=== PATIENT | male | born 1945 | race Caucasian/White ===

== ENCOUNTER 2017-01-30 14:59 | Outpatient (CLI) | payer MEDICARE | END 2017-01-30 15:00 | disposition home or self-care (01) | DX: I25.10 Atherosclerotic heart disease of native coronary artery without angina pectoris (principal); I10 Essential (primary) hypertension; E03.9 Hypothyroidism, unspecified; I48.91 Unspecified atrial fibrillation ==

== ENCOUNTER 2017-05-09 10:20 | Outpatient (CLI) | payer MEDICARE | END 2017-05-09 10:21 | disposition home or self-care (01) | LOC: SC 10:20 | PROVIDERS: ATTEND Specialist | DX: G47.33 Obstructive sleep apnea (adult) (pediatric) (principal) | CPT/HCPCS: 99205; G0463; 99212 ==

== ENCOUNTER 2017-06-26 09:45 | Outpatient (CLI) | payer MEDICARE ==
[2017-06-26 18:41] LABS: ALBUMIN/GLOBULIN RATIO 0.9 (1.0-2.2); BILIRUBIN,TOTAL 0.2 mg/dL (0.2-1.0); CALCIUM 8.8 mg/dL (8.5-10.3); CREATININE 1.4 mg/dL (0.6-1.2); POTASSIUM 4.7 mmol/L (3.5-5.0); TOTAL PROTEIN 7.2 g/dL (6.7-8.2)
== END 2017-06-26 09:46 | disposition home or self-care (01) ==
LOC: LAB.R 09:45 → LAB.S 09:46
PROVIDERS: ATTEND Surgery Vascular Surgery
DX: I10 Essential (primary) hypertension (principal)
CPT/HCPCS: 36415; 80053

== ENCOUNTER 2017-07-02 19:22 | Outpatient (CLI) | payer MEDICARE | END 2017-07-02 19:23 | disposition home or self-care (01) | LOC: SC 19:22 | PROVIDERS: ATTEND Internal Medicine Pulmonary Disease | DX: G47.33 Obstructive sleep apnea (adult) (pediatric) (principal); G47.61 Periodic limb movement disorder | CPT/HCPCS: 95811 ==

== ENCOUNTER 2017-07-11 14:06 | Outpatient (CLI) | payer MEDICARE | END 2017-07-11 14:07 | disposition home or self-care (01) | LOC: SC 14:06 | PROVIDERS: ATTEND Specialist | DX: G47.33 Obstructive sleep apnea (adult) (pediatric) (principal) | CPT/HCPCS: 99214; G0463; 99212 ==

== ENCOUNTER 2017-09-11 11:03 | Outpatient (CLI) | payer MEDICARE | END 2017-09-11 11:04 | disposition home or self-care (01) | LOC: SC 11:03 | PROVIDERS: ATTEND Nurse Practitioner Family | DX: G47.33 Obstructive sleep apnea (adult) (pediatric) (principal) | CPT/HCPCS: 99213; G0463; 99212 ==

== ENCOUNTER 2019-02-05 11:05 | Outpatient (CLI) | payer MEDICARE | END 2019-02-05 11:06 | disposition home or self-care (01) | LOC: SC 11:05 | PROVIDERS: ATTEND Nurse Practitioner Family | DX: G47.33 Obstructive sleep apnea (adult) (pediatric) (principal) | CPT/HCPCS: 99214; G0463; 99212 ==

== ENCOUNTER 2019-08-05 13:18 | Outpatient (CLI) | payer MEDICARE | END 2019-08-05 13:19 | disposition home or self-care (01) | LOC: RT 13:18 | PROVIDERS: ATTEND Surgery Vascular Surgery | DX: I48.0 Paroxysmal atrial fibrillation (principal); E78.5 Hyperlipidemia, unspecified; Z79.899 Other long term (current) drug therapy | CPT/HCPCS: 36415; 80053; 80061; 83721; 84443; 85027; 94010; 94729 ==

== ENCOUNTER 2019-08-05 14:21 | Outpatient (CLI) | payer MEDICARE ==
[2019-08-05 14:42] LABS: HGB - HEMOGLOBIN 15.3 g/dL (14.0-18.0); MEAN CORPUSCULAR HEMOGLOBIN 33.1 pg (27.0-31.0); MEAN CORPUSCULAR HGB CONC 32.3 g/dL (32.0-36.0); MEAN CORPUSCULAR VOLUME 102.6 fL (80.0-94.0); MEAN PLATELET VOLUME 10.3 fL (7.4-11.4); RED BLOOD COUNT 4.62 10^6/uL (4.70-6.10); RED CELL DISTRIBUTION WIDTH 15.9 % (12.0-15.0)
[2019-08-05 15:02] LABS: ALBUMIN 3.7 g/dL (3.2-5.5); ALKALINE PHOSPHATASE 101 IU/L (42-121); ALT ALANINE AMINOTRANSFERASE 14 IU/L (10-60); AST ASPARTATE AMINOTRANSFERASE 17 IU/L (10-42); BILIRUBIN,TOTAL 0.6 mg/dL (0.2-1.0); BUN - BLOOD UREA NITROGEN 26 mg/dL (6-20); CALCIUM 9.3 mg/dL (8.5-10.3); CARBON DIOXIDE - CO2 22 mmol/L (21-32); CHLORIDE 108 mmol/L (101-111); CHOL/HDL RATIO 4.3 (<5.0); CHOLESTEROL 173 mg/dL; CREATININE 1.5 mg/dL (0.6-1.2); GFR - MDRD 46 (>89); GLUCOSE 90 mg/dL (70-100); HDL CHOLESTEROL 40 mg/dL; LDL CHOLESTEROL,CALCULATED 117 mg/dL; LDL/HDL RATIO 2.9 (<3.6); SODIUM 142 mmol/L (135-145); TOTAL PROTEIN 7.3 g/dL (6.7-8.2); VLDL CHOLESTEROL 16 mg/dL
== END 2019-08-05 14:22 | disposition home or self-care (01) ==
LOC: LAB 14:21
PROVIDERS: ATTEND Surgery Vascular Surgery
DX: I48.0 Paroxysmal atrial fibrillation (principal); E78.5 Hyperlipidemia, unspecified; Z79.899 Other long term (current) drug therapy
CPT/HCPCS: 36415; 80053; 80061; 83721; 84443; 85027

== ENCOUNTER 2019-09-05 10:13 | Outpatient (CLI) | payer MEDICARE | END 2019-09-05 10:14 | disposition home or self-care (01) | LOC: DI 10:13 | PROVIDERS: ATTEND Surgery Vascular Surgery | DX: I48.0 Paroxysmal atrial fibrillation (principal); I51.7 Cardiomegaly | CPT/HCPCS: 93306 ==

== ENCOUNTER 2019-10-04 08:14 | Outpatient (CLI) | payer MEDICARE ==
--- NOTE | 2019-10-07 10:08 | DEXA Report ---
Reason: LUMBAR AND THORACIC COMPRESSION FRACTURES Procedure Date: 10/04/2019 Accession Number: [id number] / [id number] Procedure: DEX - Dexa Spine and/or Hip CPT Code: Final Report FULL RESULT: EXAM: Dexa Spine and/or Hip DATE: 10/04/2019 8:45 AM CLINICAL HISTORY: LUMBAR AND THORACIC COMPRESSION FRACTURES TECHNIQUE: Dual energy x-ray absorptiometry (DXA) was performed on a DEUS System. Regions measured are the AP Spine, femoral neck, and if needed forearm. COMPARISON: None. In accordance with the International Society for Clinical Densitometry (ISCD) guidelines, data from previous exams may be reanalyzed using current recommendations and techniques. This is done to allow a more accurate basis for comparison with the current study. FINDINGS: The data for the lumbar spine is as follows: BMD (g/cm/cm) T-SCORE Z-SCORE REGION L1 0.821 -2.8 -2.9 L2 1.132 -0.9 -1.0 L3 1.294 0.4 0.3 L4 1.703 3.9 3.8 TOTAL 1.250 0.2 0.1 NOTE: All evaluable vertebrae are used for classification The data for the hip is as follows: BMD (g/cm/cm) T-SCORE Z-SCORE REGION Neck 0.660 -3.2 -2.2 TOTAL 0.714 -2.7 -2.2 NOTE: The femoral neck or total proximal femur, whichever is lowest, is used for classification. IMPRESSION: THE WHO CLASSIFICATION BASED ON THE INTERNATIONAL REFERENCE STANDARD IS OSTEOPOROSIS. THE FRACTURE RISK IS HIGH. Please note that apparent density in the lumbar spine is likely exacerbated especially at the L4 level due to degenerative changes. RECOMMENDATION: Patients with diagnosis of osteoporosis or osteopenia should have regular bone mineral density assessment. For those eligible for Medicare, routine testing is allowed once every 2 years. Testing frequency can be increased for patients who have rapidly progressing disease or for those who are receiving medical therapy to restore bone mass. COMMENT: World Health Organization (WHO) definitions for osteoporosis and osteopenia: NORMAL BMD: T-score at -1.0 or higher, fracture risk is low OSTEOPENIA BMD: T-score between -1.0 and -2.5, fracture risk is increased. OSTEOPOROSIS BMD: T-score at -2.5 or lower, fracture risk is high. National Osteoporosis Foundation recommends: 1. Obtain adequate dietary calcium (at least 1200 mg per day) and vitamin D (400-800 international units per day). 2. Participate, as appropriate, in regular weightbearing and muscle-strengthening exercise. 3. Avoid tobacco use and reduce alcohol and caffeine intake. 4. For more detailed information see the website at www.NOF.org.
== END 2019-10-04 08:15 | disposition home or self-care (01) ==
LOC: DI 08:14
PROVIDERS: ATTEND Physical Medicine & Rehabilitation
DX: S32.050A Wedge compression fracture of fifth lumbar vertebra, initial encounter for closed fracture (principal); S32.030A Wedge compression fracture of third lumbar vertebra, initial encounter for closed fracture; S32.020A Wedge compression fracture of second lumbar vertebra, initial encounter for closed fracture; S22.080A Wedge compression fracture of T11-T12 vertebra, initial encounter for closed fracture; M81.0 Age-related osteoporosis without current pathological fracture; Z11.9 Encounter for screening for infectious and parasitic diseases, unspecified
CPT/HCPCS: 77080

== ENCOUNTER 2019-10-04 08:17 | Outpatient (CLI) | payer MEDICARE ==
--- NOTE | 2019-10-04 15:17 | CT Report ---
Reason: BACK PAIN, OR RADICULOPATHY > 6 WKS Procedure Date: 10/04/2019 Accession Number: [id number] / [id number] Procedure: CT - THORACIC SPINE WO CPT Code: Final Report FULL RESULT: EXAM: CT THORACIC SPINE WITHOUT CONTRAST EXAM DATE: 10/04/2019 08:52 AM. CLINICAL HISTORY: BACK PAIN, OR RADICULOPATHY 6 WKS. COMPARISONS: CT of the chest, abdomen and pelvis 11/16/2016 from [facility]. MRI of the lumbar spine [facility] 09/17/2019. TECHNIQUE: Thin-section axial images were acquired of the thoracic spine from C7 to L1 without contrast. Post-processing: Coronal and sagittal reformats. Other: None. In accordance with CT protocol optimization, one or more of the following dose reduction techniques were utilized for this exam: automated exposure control, adjustment of mA and/or KV based on patient size, or use of iterative reconstructive technique. FINDINGS: Alignment: No scoliosis or spondylolisthesis. Bones: Chronic appearing central compression fractures of C7, anterior wedging of T4, unchanged compared to CT chest abdomen pelvis 11/16/2016. Schmorl's node upper T11 endplate changes unchanged compared to MR lumbar spine 09/17/2019. Recent central compression fracture versus Schmorl's node correlated to recent MRI 09/17/2019 where there was marrow edema. No retropulsion of the posterior cortex. Disk Levels/Facets: C7-T1: Mild facet arthropathy without significant canal or foraminal narrowing. T1-T2: Mild facet arthropathy with moderate left foraminal narrowing. Mild right foraminal narrowing. T2-T3: Left greater than right facet arthropathy with moderate left mild right foraminal narrowing. No significant canal narrowing. T3-T4: Left greater than right facet arthropathy without significant canal or foraminal narrowing. T4-T5: Moderate disk height loss. No significant canal narrowing. Mild right greater than left foraminal narrowing. T5-T6: Mild facet arthropathy. Mild right greater than left foraminal narrowing. T6-T7: Bilateral facet arthropathy. No significant canal or foraminal narrowing. T7-T8: Moderate disk height loss. Inferior endplates Schmorl's node changes unchanged compared to 2017. Mild bilateral facet arthropathy. No significant canal or foraminal narrowing. T8-T9: Bilateral facet arthropathy. Mild to moderate bilateral foraminal narrowing. No significant canal narrowing. T9-T10: Bilateral facet arthropathy. Mild to moderate bilateral foraminal narrowing. No significant canal narrowing. T10-T11: Bilateral facet arthropathy. Mild to moderate bilateral foraminal narrowing. No significant canal narrowing. T11-T12: Bilateral facet arthropathy. Mild to moderate bilateral foraminal narrowing. No significant canal narrowing. T12-L1: Annular bulge. Mild bilateral facet arthropathy. Mild foraminal narrowing. Musculature: Normal. No fatty atrophy. Other: The visualized lungs, mediastinum, and abdominal cavity are unremarkable. IMPRESSION: 1. Known recent central compression deformities of the inferior T12 endplate, correlated to MR lumbar spine 09/17/2019 showing marrow edema, unchanged. 2. No acute fracture. Chronic compression deformities of C7, inferior T7 endplate, superior T11 endplate and inferior L1 endplate unchanged compared to CT chest, abdomen and pelvis 11/16/2016. 3. Multilevel degenerative changes with varying degrees of foraminal narrowing as detailed above. RADIA
--- NOTE | 2019-10-04 15:30 | CT Report ---
Reason: BACK PAIN, OR RADICULOPATHY > 6 WKS Procedure Date: 10/04/2019 Accession Number: [id number] / [id number] Procedure: CT - LUMBAR SPINE WO CPT Code: Final Report FULL RESULT: EXAM: CT LUMBAR SPINE WITHOUT CONTRAST EXAM DATE: 10/04/2019 08:52 AM. CLINICAL HISTORY: BACK PAIN, OR RADICULOPATHY 6 WKS. COMPARISONS: MR LUMBAR WO(UNPAIRED) 09/17/2019 11:48 AM. TECHNIQUE: Thin-section axial images were acquired of the lumbar spine from T12 to S1 without contrast. Post-processing: Coronal and sagittal reformats. Other: None. In accordance with CT protocol optimization, one or more of the following dose reduction techniques were utilized for this exam: automated exposure control, adjustment of mA and/or KV based on patient size, or use of iterative reconstructive technique. FINDINGS: Alignment: No scoliosis or spondylolisthesis. Bones: Five ilr-eay-salvpag lumbar vertebral bodies are present. Most caudal rib-bearing vertebral body labeled T12. Stable Schmorl's node changes at the upper T11 endplate. Stable central compression deformities of the inferior T12, L1, L2, L4, and L5. Compression fractures of T12, L2, and L5 presumably subacute given marrow edema on recent MRI 09/17/2019. Severe inferior L3 burst type fracture with involvement of the posterior inferior cortex. There is 5-6 mm retropulsed posterior-inferior fragment of L3 resulting in 50% canal narrowing. Disk Levels/Facets: L1-L2: Annular bulge. Moderate bilateral foraminal narrowing. No significant canal narrowing. L2-L3: Annular bulge. Mild facet arthropathy. Mild to moderate bilateral foraminal narrowing. L3-L4: Moderate to severe central canal narrowing secondary to retropulsed fragment. Severe right moderate to severe left foraminal narrowing. L4-L5: No significant canal narrowing. Moderate bilateral foraminal narrowing. L5-S1: Bilateral facet arthropathy. Severe bilateral foraminal narrowing. No significant change. Right greater than left sacroiliac arthropathy. Musculature: Normal. No fatty atrophy. Other: The visualized retroperitoneum is unremarkable. IMPRESSION: 1. Recent burst type fracture of the inferior L3 endplate, retropulsed posterior-superior inferior L3 endplate resulting in 50% canal narrowing at L3-L4. 2. Recent compression deformities/fracture of T12 L2 and L5 given marrow edema on recent MRI. 3. No new fractures in comparison to recent MRI. 4. Multilevel degenerative changes with varying degrees of foraminal narrowing most severe on the right at L3-L4 and L5-S1 as well as on the left at L4-L5 and L5-S1. RADIA
== END 2019-10-04 08:18 | disposition home or self-care (01) ==
LOC: DI 08:17
PROVIDERS: ATTEND Physician Assistant
DX: M81.0 Age-related osteoporosis without current pathological fracture (principal); M51.36 Other intervertebral disc degeneration, lumbar region; M47.816 Spondylosis without myelopathy or radiculopathy, lumbar region; M51.34 Other intervertebral disc degeneration, thoracic region; S32.050A Wedge compression fracture of fifth lumbar vertebra, initial encounter for closed fracture; S22.080A Wedge compression fracture of T11-T12 vertebra, initial encounter for closed fracture; S32.030A Wedge compression fracture of third lumbar vertebra, initial encounter for closed fracture; S32.020A Wedge compression fracture of second lumbar vertebra, initial encounter for closed fracture; S32.82XG Multiple fractures of pelvis without disruption of pelvic ring, subsequent encounter for fracture with delayed healing; Z11.9 Encounter for screening for infectious and parasitic diseases, unspecified
CPT/HCPCS: 72082; 72128; 72131; 77080

== ENCOUNTER 2019-10-04 08:19 | Outpatient (CLI) | payer MEDICARE ==
--- NOTE | 2019-10-04 11:33 | XRAY Report ---
Reason: EVALUATE FOR SCOLIOSIS,MULTIPLE COMPRESSION FX OF PELVIS WITH Procedure Date: 10/04/2019 Accession Number: [id number] / [id number] Procedure: XR - Spine Scoliosis Study 2-3V CPT Code: Final Report FULL RESULT: EXAM: SCOLIOSIS RADIOGRAPHY EXAM DATE: 10/04/2019 09:10 AM. CLINICAL HISTORY: Multiple compression fractures. COMPARISONS: None. TECHNIQUE: Standing view(s) of the cervical, thoracic and lumbar spine. No composite images submitted. FINDINGS: Bony detail is limited because of upright technique. Preserved cervical lordosis. Preserved thoracic kyphosis. There is straightening of the lumbar lordosis. No abnormal curvature at the cervical spine. There is very poor visualization of the thoracic spine secondary to overlapping tissues. No definitive significant abnormal curvature is seen. At the lumbar spine there is no significant abnormal curvature. There is osteopenia. There appear to be multiple mild to moderate compression fractures of the lumbar spine, especially at L1, L2 and L3. As noted above, bony detail is limited by technique. There appears to be diffuse moderate degenerative disk disease through most of the spine, most prominent at the mid to lower lumbar levels. IMPRESSION: No clear evidence of scoliosis. Limited bony detail is noted. Old appearing lumbar vertebral compression fractures. Multilevel spondylosis most prominent in the lumbar spine. RADIA
== END 2019-10-04 08:20 | disposition home or self-care (01) ==
LOC: DI 08:19
PROVIDERS: ATTEND Student in an Organized Health Care Education/Training Program
DX: S32.82XG Multiple fractures of pelvis without disruption of pelvic ring, subsequent encounter for fracture with delayed healing (principal); M51.36 Other intervertebral disc degeneration, lumbar region; M47.816 Spondylosis without myelopathy or radiculopathy, lumbar region
CPT/HCPCS: 72082

== ENCOUNTER 2020-09-18 09:43 | Outpatient (CLI) | payer MEDICARE, OTHER ==
--- NOTE | 2020-09-18 09:13 | SLEEP CARE CONSULTATION ---
Information from patient questionnaire entered by Olga Hernandez. I have reviewed and concur with the information entered by Olga Hernandez. This document represents the service I personally performed and the decisions made by me, Amada Botello, RN, MSN, [employer]. History of Present Illness Service Date and Time: 09/18/2020829 Previous diagnosis: Moderate, Obstructive Sleep Apnea-Hypopnea Syndrome AHI: 21.4 (in 2017) Reason for follow up: annual (last seen 01/2019, transfer DME) Equipment type: CPAP Equipment obtained from: [facility] (no longer servicing CPAP equipment) Mask style: Nasal Mask brand: Resmed ([id number]) Backup mask available: No (keep current mask as spare mask when replaced) Last cushion change: 6 months Prior sleep studies: Yes [facility] 2007 - unknown; 1999 - [facility] in [place] Type of Sleep Study: Polysomnography HPI additional information: I reviewed patient last visit from 02/01 and last sleep study results in 2017 before patient visit. A transfer order to a new DME was made at last visit but patient chose to stay with [facility] and try to use them at little longer. Since then, [facility] has stopped dispensing CPAP supplies. Patient has not been able to update supplies and current supplies are 6 months old. CPAP Compliance Data - Data Reviewed with Patient Average duration of nightly device use: 7 hr 38 min Compliance rate %: 91.1 (180 days) Current pressure setting (cmH2O): 7-14 Humidity settin Heated hose settin Average residual AHI: 2.3 Average large leak: 1 hr 43 min 18 sec Subjective Patient concerns: denies: aerophagia, mask discomfort, air blowing in eyes, mask leak noise, condensation in mask/hose (rare), nasal congestion, dry mouth, nose, throat, epistaxis Observed to snore while using device: No (single sleeps alone) Current pressure setting perceived as: comfortable On therapy, patient: reports: sleeping better, awakening more refreshed, being more awake and alert during the day, more rested overall. denies: drowsiness while driving Initial Harriman Sleepiness Scale score: 4 (in 2017) Current Harriman Sleepiness Scale score: 1 Allergies and Home Medications Known drug allergies: No Home medication list reviewed: No (no changes) Review of Systems Review of systems same as previous: Yes (no changes stated ) Physical Exam Height: 5 ft 11 in Weight: 260 lb Body Mass Index: 36.2 BMI Classification: Obese Impression and Plan 1. Obstructive Sleep Apnea-Hypopnea Syndrome, moderate, with good treatment compliance and good apnea control. On CPAP therapy, the patient has better sleep quality and is more rested overall. For patient supply concerns. Patient was notified that another DME can be used. I will have my dental financial coordinator inform of DME options. A [facility] prescription will then be made. Patient advised to contact this office if further supply problems. Currently patients BMI is obesity class 36. Patient states he has been heavy most of his life and aware of need to lose weight for his health. However, he has struggled to lose weight and when achieved it is hard to maintain weight loss. I reviewed how obesity increases the risk of apnea, CPAP pressure requirements and overall health risks especially cardiovascular and diabetes. Thus patient is advised to lose weight. A diet consultation can be helpful in achieving optimal weight loss goals. The patient would like to reduce to 10-30 pounds but feels this will not be achieved in near future. Patient encouraged to discuss their weight loss goals with their PCP and consider a referral to a fiber technologist. The patient's CPAP pressure range should accommodate some weight loss and patient does not want to lower pressure range at this time. He will call when he is successful in losing weight to adjust his CPAP pressure. Symptoms to report for additional pressure adjustment discussed. Patient's apnea severity and rationale for treatment to reduce apnea, improve sleep quality and reduce cardiovascular and cerebrovascular events was reviewed. * Continue auto CPAP pressure at 7-14 cmH2O * Transfer to new DME. * Notify me if snoring with mask or feeling that the pressure is too much or too little * Attempt to lose weight * Call this office if any problems using CPAP * Return for follow up in 1 year , or sooner if concerns arise Visit Type: Telehealth Video Video Type: Doximity Patient Location: Home Location of Provider: Home Patient agrees and consents to this telehealth visit type: Yes Patient agrees to have their insurance billed: Yes Time Spent with Patient (minutes): 25 Provider Statement: I spent 100% of the Telehealth Video Call with the patient with greater than 50% spent counseling the patient and coordination of care.
== END 2020-09-18 09:44 | disposition home or self-care (01) ==
LOC: SC 09:43
PROVIDERS: ATTEND Nurse Practitioner Family
DX: G47.33 Obstructive sleep apnea (adult) (pediatric) (principal); E66.9 Obesity, unspecified; Z68.36 Body mass index [BMI] 36.0-36.9, adult

== ENCOUNTER 2022-07-27 09:03 | Outpatient (CLI) | payer MEDICARE, OTHER | END 2022-07-27 09:04 | disposition home or self-care (01) | LOC: RT 09:03 | PROVIDERS: ATTEND Surgery Vascular Surgery | DX: I48.91 Unspecified atrial fibrillation (principal); Z79.899 Other long term (current) drug therapy | CPT/HCPCS: 94010; 94729 ==

== ENCOUNTER 2024-04-23 11:14 | Outpatient (CLI) | payer MEDICARE, OTHER ==
[2024-04-23 11:38] LABS: BILIRUBIN,TOTAL 0.7 mg/dL (0.2-1.0); CALCIUM 10.1 mg/dL (8.5-10.3); CREATININE 1.7 mg/dL (0.6-1.3); POTASSIUM 5.2 mmol/L (3.5-4.5)
[2024-04-23 11:54] LABS: THYROID STIMULATING HORMONE 8.47 uIU/mL (0.34-5.60)
== END 2024-04-23 11:15 | disposition home or self-care (01) ==
LOC: LAB 11:14
PROVIDERS: ATTEND Surgery Vascular Surgery
DX: I48.0 Paroxysmal atrial fibrillation (principal); Z79.899 Other long term (current) drug therapy; I10 Essential (primary) hypertension
CPT/HCPCS: 36415; 80053; 84439; 84443